=== PATIENT | female | born 1960 | race Caucasian/White ===

== ENCOUNTER → 2022-04-01 | Outpatient (CLI) | payer OTHER ==
[2022-04-07 12:10] LABS: HPV 16 Negative (Negative); HPV 18 Negative (Negative); HPV OTHER HR TYPES Negative (Negative)
== END ==
LOC: LAB SHORT 12:00 → LAB 12:00
PROVIDERS: Family Medicine
DX: Z09 Encounter for follow-up examination after completed treatment for conditions other than malignant neoplasm (principal); Z87.42 Personal history of other diseases of the female genital tract
CPT/HCPCS: 87624; G0145

== ENCOUNTER 2023-11-09 22:14 | Emergency (ER) | payer OTHER ==
[~2023-11-09] VITALS: Ht 162.6 cm; Wt 70.8 kg
[2023-11-09 22:40] VITALS: BP 150/88
[2023-11-10] MEDS ORDERED: AMOCLA875 PO (00:43)
[2023-11-10] MEDS ORDERED: Tetanus and Diphtheria Toxoid 0.5 ML INJ IM ONE (00:45)
[2023-11-10] MEDS ORDERED: Amoxicillin/Clavulanate K 875 MG Tab PO ONE (00:45)
== END 2023-11-10 01:20 | disposition home or self-care (01) ==
LOC: ER 22:14
DX: S01.551A Open bite of lip, initial encounter (principal); W54.0XXA Bitten by dog, initial encounter; Y93.89 Activity, other specified
CPT/HCPCS: 90471; 90714; 99283-25; A9270